=== PATIENT | male | born 1975 | race Caucasian/White ===

== ENCOUNTER 2025-01-31 21:50 | Emergency (ER) | payer OTHER ==
[2025-01-31] MEDS: Lidocaine 1% 5 ML VIAL INJECT ONE (22:05)
[2025-01-31 22:35] VITALS: BP 155/104; PULSE 72
== END 2025-01-31 22:15 | disposition home or self-care (01) ==
LOC: LB.ED 21:50
DX: S60.559A Superficial foreign body of unspecified hand, initial encounter (principal); W45.8XXA Other foreign body or object entering through skin, initial encounter
CPT/HCPCS: 99283; J2003